=== PATIENT | female | born 1985 | race Caucasian/White ===

== ENCOUNTER 2021-05-01 08:48 | Emergency (ER) | payer MEDICARE, MEDICAID, SELFPAY ==
--- NOTE | 2021-05-01 08:52 | ED.SKABFB ---
HPI - Skin/Abscess/Foreign Bdy General Chief complaint: Skin/Abscess/Foreign Body Stated complaint: Lt arm rash Time Seen by Provider: 05/01/21 08:53 Source: patient and RN notes reviewed History of Present Illness HPI narrative: Patient is a 35-year-old female who presents the urgent care with complaints of a rash to her left arm and chest. Patient states that she was helping her boyfriend clean up his yard a few days ago and noticed the rash 2 days ago. Patient states that she is use calamine and bleach to the rash trying to dry it out . Patient states that it is itchy. No other acute complaints. No acute distress noted. Patient aware of the plan of care. Some parts of this dictation were generated by voice recognition software and may contain typographical and/or grammatical inaccuracies. Related Data Allergies Allergy/AdvReac Type Severity Reaction Status Date / Time No Known Allergies Allergy Unknown Uncoded 05/01/21 09:02 Review of Systems Review of Systems: Narrative: CONSTITUTIONAL: Denies fever, chills, or sweats. EYES: Denies visual changes, redness, or discharge. ENT: Denies rhinorrhea, congestion, sore throat, or otalgia. CARDIOVASCULAR: Denies chest pain, palpitations, or edema. RESPIRATORY: Denies cough or dyspnea. GASTROINTESTINAL: Denies abdominal pain, nausea, vomiting, or diarrhea. GENITOURINARY: Denies dysuria or hematuria. SKIN: Itchy rash to the left arm and chest MUSCULOSKELETAL: Denies back pain, joint pain, or myalgia. NEUROLOGIC: Denies headache, numbness, or weakness. All other systems reviewed are negative, except as documented in HPI. PMFSH Comments At the time of my signature, I reviewed and agree with the nursing past medical, surgical, social, and family history. There is no relevant family history pertinent to the patient complaint. Exam Narrative: Exam Narrative: GENERAL: This is a well-nourished, well-developed patient, in no apparent distress. HEAD: normocephalic, atraumatic. EYES: PERRL. Sclera clear/white. Vision is grossly intact. EARS: External ears normal NOSE: External nose normal with no obvious nasal discharge, nares without redness, no rhinorrhea. THROAT: Mucous membranes moist NECK: Neck supple CARDIOVASCULAR: Regular rate and rhythm without murmurs, gallops, or rubs. RESPIRATORY: Clear to auscultation. Breath sounds equal bilaterally. No wheezes, rales, or rhonchi. GASTROINTESTINAL: Abdomen soft, non-tender, nondistended. Bowel sounds are active. No hepato-splenomegaly, or palpable masses. No guarding. SKIN: Vesicular mildly erythemic pruritic dermatitis noted to the left upper arm and chest NEURO: awake, alert, and oriented to person, place and time. There were no obvious focal neurologic abnormalities. EXTREMITIES: No clubbing, cyanosis, or edema. Course Vital Signs Vital signs: Vital Signs Temperature 98.1 F 05/01/21 08:58 Pulse Rate 96 05/01/21 08:58 Respiratory Rate 20 05/01/21 08:58 Blood Pressure 139/78 05/01/21 08:58 Pulse Oximetry 96 05/01/21 08:58 Temperature 98.1 F 05/01/21 08:58 Pulse Rate 96 05/01/21 08:58 Respiratory Rate 20 05/01/21 08:58 Blood Pressure 139/78 05/01/21 08:58 Pulse Oximetry 96 05/01/21 08:58 Reviewed MDM - Skin/Abscess/Foreign Bdy MDM Narrative Medical decision making narrative: Advised the patient to use the prescription cream to the affected area as prescribed. Complete steroid regimen as prescribed. Be sure to eat and drink with the medication. Use [id number] TecNu scrub daily. If you develop any increase in the spread of the rash associated with shortness of breath?go to the emergency room. Follow-up with your PCP within 2 to 5 days or for worsening symptoms or failure to improve. Differential Diagnosis Differential diagnosis: Likely abscess of skin or subcutaneous tissue, urticaria, cellulitis, insect bites, impetigo and contact dermatitis Critical Care Time Critical Care Time Critical C
[2021-05-01 08:58] VITALS: BP 139/78; PULSE 96; RESP 20; TEMP 36.7; O2SAT 96
== END 2021-05-01 09:05 | disposition home or self-care (01) ==
PROVIDERS: Emergency Provider Nurse Practitioner Family
DX: L23.7 Allergic contact dermatitis due to plants, except food (principal)
CPT/HCPCS: 99213; G0463

== ENCOUNTER 2022-09-11 18:25 | Emergency (ER) | payer MEDICARE, MEDICAID, SELFPAY ==
[2022-09-11 18:40] VITALS: BP 118/63; PULSE 107; RESP 18; TEMP 37.7; O2SAT 99
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
== END 2022-09-11 19:53 | disposition short-term general hospital (02) ==
PROVIDERS: Emergency Provider Registered Nurse
DX: L03.115 Cellulitis of right lower limb (principal)
CPT/HCPCS: 99212; G0463